=== PATIENT | female | born 2000 | race Caucasian/White ===

== ENCOUNTER 2019-09-12 06:55 | Observation (INO) ==
[2019-09-12] MEDS ORDERED: 0.9 % Sodium Chloride 1,000 ML IVC ONE ×2 (07:14→07:43)
[2019-09-12] MEDS ORDERED: Morphine Sulfate 2 MG/ML SYRINGE IVP ONE (07:19)
[2019-09-12 07:28] LABS: Basophils % 0.4 %; Eosinophils # 0.2 K/mcL (0.0-0.6); Eosinophils % 2.1 %; Hematocrit 38.3 % (35.3-44.9); Hemoglobin 13.2 g/dL (11.5-15.4); Immature Granulocytes % 0.8 % (0-4); Lymphocytes % 19.1 %; Mean Corpuscular HGB Conc 34.5 g/dL (31.6-35.5); Mean Corpuscular Hemoglobin 30.1 pg (28.0-33.3); Mean Corpuscular Volume 87.2 fL (83.0-100.0); Mean Platelet Volume 10.6 fL (9.4-12.4); Monocytes # 0.8 K/mcL (0.0-1.3); Monocytes % 7.2 %; Neutrophils # 7.4 K/mcL (1.6-8.9); Platelet Count 313 K/mcL (140-400); Red Blood Count 4.39 M/mcL (3.82-4.97); Red Cell Distribution Width 13.3 % (11.5-14.5); Segmented Neutrophils % 70.4 %; White Blood Count 10.6 K/mcL (4.3-11.1)
[2019-09-12 07:44] LABS: Prothrombin Time 11.6 Seconds (9.4-12.1)
[2019-09-12] MEDS ORDERED: miSOPROStol 100 MCG TABLET PO STA (07:44)
[2019-09-12 07:47] LABS: Activated Partial Thrombo Time 31.4 Seconds (26.0-36.0)
[2019-09-12] MEDS ORDERED: Ibuprofen 600 MG TABLET PO ONE (08:47)
[2019-09-12 10:57] LABS: Hematocrit 26.2 % (35.3-44.9)
[2019-09-12 10:59] LABS: Hemoglobin 9.2 g/dL (11.5-15.4)
[2019-09-12] MEDS ORDERED: Methylergonovine 0.2 MG/ML AMPUL IM ONE ×2 (11:31→12:11)
[2019-09-12] MEDS ORDERED: Bupivacaine/EPI 1:200k 0.5%PF 10 ML VIAL ONE (11:31)
[2019-09-12] MEDS ORDERED: Ondansetron 4 MG/2 ML VIAL IVP ONE (11:44)
[2019-09-12] MEDS ORDERED: Morphine Sulfate 2 MG/ML SYRINGE IVP PRN (11:44)
[2019-09-12] MEDS ORDERED: cefOXitin 1,000 MG in Water for inj. (sterile) 10 ML IVP ONE (12:00)
[2019-09-12] MEDS ORDERED: Ondansetron 4 MG/2 ML VIAL ONE (12:14)
[2019-09-12] MEDS ORDERED: *HR* FentaNYL (PF) 100 MCG/2 ML VIAL ONE (12:14)
[2019-09-12] MEDS ORDERED: *HR* Propofol 200 MG/20 ML VIAL IVP ONE (12:14)
[2019-09-12] MEDS ORDERED: Dexamethasone 4 MG/ML VIAL ONE (12:14)
[2019-09-12] MEDS ORDERED: Ketorolac 30 MG/ML VIAL ONE (12:14)
[2019-09-12] MEDS ORDERED: Lidocaine -MPF 2% 2 ML VIAL ONE (12:14)
[2019-09-12] MEDS ORDERED: CefOXitin 1,000 MG VIAL ONE (12:26)
[2019-09-12 17:27] VITALS: BP 118/78
== END 2019-09-12 16:13 | disposition home or self-care (01) ==
LOC: 1NENUOBS 06:55 → EMEROOARM 06:55 → 1NENUOBS 11:15
PROVIDERS: ADMIT Obstetrics & Gynecology; ATTEND Obstetrics & Gynecology

== ENCOUNTER → 2021-04-11 14:00 | Observation (INO) ==
[2021-04-11 12:13] LABS: Bilirubin,Urine Negative (Negative); Blood,Urine Negative (Negative); Clarity,Urine Turbid (Clear); Color,Urine Yellow (Yellow); Glucose,Urine (UA) Normal (Normal); Ketones,Urine 10 mg/dL (Negative); Leukocyte Esterase,Urine Small (Negative); Nitrite,Urine Negative (Negative); PH,Urine 6.5 pH Units (5.0-8.0); Protein,Urine 30 mg/dL (Neg-Trace); Specific Gravity,Urine 1.027 (1.010-1.025); Urobilinogen,Urine Normal (Normal)
[2021-04-11 12:19] LABS: Bacteria,Urine Few per hpf (None-Few); Mucus,Urine Many per lpf (None-Few); Squamous Epithelial Cell,Urine Few per hpf (None-Few); WBC,Urine 0-3 per hpf (0-3)
== END | disposition home or self-care (01) ==
LOC: 1NENULAB
PROVIDERS: ADMIT Student in an Organized Health Care Education/Training Program; ATTEND Student in an Organized Health Care Education/Training Program

== ENCOUNTER 2021-05-20 07:49 | Inpatient (IN) ==
[2021-05-20] MEDS ORDERED: Famotidine 20 MG/2 ML VIAL IVP PRN (08:10)
[2021-05-20] MEDS ORDERED: Naloxone 0.4 MG/ML INJ IVP PRN (08:10)
[2021-05-20] MEDS ORDERED: Lidocaine 1% 20 ML MDV ID PRN (08:10)
[2021-05-20] MEDS ORDERED: Metoclopramide 10 MG/2 ML VIAL IVP PRN (08:10)
[2021-05-20] MEDS ORDERED: *HR* Nalbuphine 10 MG/ML AMPUL IV PRN (08:10)
[2021-05-20] MEDS ORDERED: Ondansetron 4 MG/2 ML VIAL IVP PRN (08:10)
[2021-05-20] MEDS ORDERED: Azithromycin 500 MG in 0.9 % Sodium Chloride 250 ML IVPB PRN (08:10)
[2021-05-20 08:45] LABS: Basophils % 0.2 %; Eosinophils # 0.2 K/mcL (0.0-0.6); Hematocrit 25.9 % (35.3-44.9); Hemoglobin 7.6 g/dL (11.5-15.4); Immature Granulocytes % 0.9 % (0-4); Lymphocytes # 1.7 K/mcL (0.6-4.6); Lymphocytes % 16.7 %; Mean Corpuscular HGB Conc 29.3 g/dL (31.6-35.5); Mean Corpuscular Volume 75.1 fL (83.0-100.0); Mean Platelet Volume 11.5 fL (9.4-12.4); Monocytes # 0.5 K/mcL (0.0-1.3); Monocytes % 5.2 %; Neutrophils # 7.5 K/mcL (1.6-8.9); Platelet Count 238 K/mcL (140-400); Red Blood Count 3.45 M/mcL (3.82-4.97); Red Cell Distribution Width 15.8 % (11.5-14.5)
[2021-05-20 08:46] LABS: Amphetamine Screen,Urine Negative ng/mL (Cutoff=1000); Barbiturate Screen,Urine Negative ng/mL (Cutoff=200); Benzodiazepines Screen,Urine Negative ng/mL (Cutoff=200); Cannabinoid Screen,Urine Negative ng/mL (Cutoff = 50); Cocaine Screen,Urine Negative ng/mL (Cutoff= 300); Opiate Screen,Urine Negative ng/mL (Cutoff=300); Phencyclidine Screen,Urine Negative ng/mL (Cutoff=25)
[2021-05-20] MEDS ORDERED: miSOPROStoL 25 MCG TABLET PO ONE (09:57)
[2021-05-20] MEDS: Ringers Solution, Lactated 1,000 ML IVC SCH ×2 (14:14→18:10)
[2021-05-20] MEDS ORDERED: EPHEDrine 50 MG/ML VIAL IVP PRN (14:23)
[2021-05-20] MEDS ORDERED: Epidural Premix (fent/bupiv) 110 ML EP SCH (14:30)
[2021-05-20] MEDS ORDERED: Oxytocin 20 units/ LR 1000 mL 20 UNIT/1,000 ML BAG IVC SCH ×2 (16:15→19:40)
[2021-05-20] MEDS ORDERED: Lanolin 7 G OINT...G. TP PRN (19:40)
[2021-05-20] MEDS ORDERED: Benzocaine/Menthol 56 GM AEROSOL SPRAY TP PRN (19:40)
[2021-05-20] MEDS ORDERED: Measles/Mumps/Rubella Vacc 0.5 ML VIAL SQ PRN (19:40)
[2021-05-20] MEDS ORDERED: Rho Immune Globulin 1,500 UNIT SYRINGE IM PRN (19:40)
[2021-05-20] MEDS ORDERED: Oxytocin 20 units/ LR 1000 mL 20 UNIT/1,000 ML BAG IVC ONE (20:03)
[2021-05-20] MEDS: Acetaminophen 325 MG TABLET PO SCH (20:57)
[2021-05-20] MEDS: Ibuprofen 600 MG TABLET PO SCH (20:57)
[2021-05-21] MEDS: Ibuprofen 600 MG TABLET PO SCH ×3 (03:40→17:00)
[2021-05-21] MEDS: Acetaminophen 325 MG TABLET PO SCH ×3 (03:41→17:00)
[2021-05-21 07:47] VITALS: BP 121/87; PULSE 78; TEMP 97.9; O2SAT 99
[2021-05-21] MEDS ORDERED: Prenatal Vit/FA 1 EACH TABLET PO SCH (09:00)
[2021-05-21] MEDS ORDERED: Ferumoxytol 510 MG in 0.9 % Sodium Chloride 100 ML IVPB ONE (09:00)
== END 2021-05-21 17:08 | disposition home or self-care (01) | DRG 560 ==
LOC: 1NENULAB 07:49 → 1NENUOBS 23:15
PROVIDERS: ADMIT Obstetrics & Gynecology; ATTEND Obstetrics & Gynecology

== ENCOUNTER 2022-06-19 20:10 | Inpatient (IN) ==
[~2022-06-19 20:10] MED LIST: *HR* FentaNYL (PF) 100 MCG/2 ML VIAL IVP PRN; *HR* Nalbuphine 10 MG/ML AMPUL IV PRN; Azithromycin 500 MG in 0.9 % Sodium Chloride 250 ML IVPB PRN; Betamethasone Acet/SodPhos 30 MG/5 ML VIAL IM SCH; Famotidine 20 MG/2 ML VIAL IVP PRN; Lidocaine 1% 20 ML MDV INFILT PRN; Metoclopramide 10 MG/2 ML VIAL IVP PRN; Naloxone 0.4 MG/ML INJ IVP PRN; Ondansetron 4 MG/2 ML VIAL IVP PRN; Penicillin G Potassium 5,000,000 UNIT in 0.9 % Sodium Chloride Mini Bag 100 ML IVPB ONE; Ringers Solution, Lactated 1,000 ML IVC SCH
[2022-06-19 20:27] LABS: Basophils % 0.3 %; Eosinophils # 0.2 K/mcL (0.0-0.6); Eosinophils % 1.5 %; Hematocrit 31.6 % (35.3-44.9); Hemoglobin 10.2 g/dL (11.5-15.4); Immature Granulocytes % 0.7 % (0-4); Lymphocytes % 16.8 %; Mean Corpuscular HGB Conc 32.3 g/dL (31.6-35.5); Mean Corpuscular Hemoglobin 26.3 pg (28.0-33.3); Mean Corpuscular Volume 81.4 fL (83.0-100.0); Mean Platelet Volume 11.5 fL (9.4-12.4); Monocytes # 0.8 K/mcL (0.0-1.3); Monocytes % 6.8 %; Neutrophils # 8.9 K/mcL (1.6-8.9); Platelet Count 266 K/mcL (140-400); Red Blood Count 3.88 M/mcL (3.82-4.97); Segmented Neutrophils % 73.9 %
[2022-06-19 20:29] LABS: Amorphous Sediment,Urine Few per hpf (None-Few); Bacteria,Urine Few per hpf (None-Few); Bilirubin,Urine Negative (Negative); Blood,Urine Negative (Negative); Calcium Oxalate Crystals,Urine Present per hpf; Clarity,Urine Turbid (Clear); Color,Urine Yellow (Yellow); Glucose,Urine (UA) Normal (Normal); Ketones,Urine Negative (Negative); Leukocyte Esterase,Urine Negative (Negative); Mucus,Urine Many per lpf (None-Few); Nitrite,Urine Negative (Negative); Protein,Urine Trace mg/dL (Neg-Trace); Specific Gravity,Urine 1.026 (1.010-1.025); Squamous Epithelial Cell,Urine Few per hpf (None-Few)
[2022-06-19 20:34] LABS: Amphetamine Screen,Urine Negative ng/mL (Cutoff=1000); Barbiturate Screen,Urine Negative ng/mL (Cutoff=200); Benzodiazepines Screen,Urine Negative ng/mL (Cutoff=200); Cannabinoid Screen,Urine Positive ng/mL (Cutoff = 50); Cocaine Screen,Urine Negative ng/mL (Cutoff= 300); Opiate Screen,Urine Negative ng/mL (Cutoff=300); Phencyclidine Screen,Urine Negative ng/mL (Cutoff=25)
[2022-06-19] MEDS ORDERED: Ondansetron 4 MG/2 ML VIAL IVP PRN (21:19)
[2022-06-19] MEDS ORDERED: Naloxone 0.4 MG/ML INJ IVP PRN (21:19)
[2022-06-19] MEDS ORDERED: *HR* FentaNYL (PF) 100 MCG/2 ML VIAL EP ONE (21:19)
[2022-06-19] MEDS ORDERED: Ropivacaine/PF 0.2% 20 ML VIAL EP ONE (21:19)
[2022-06-19] MEDS ORDERED: EPHEDrine 50 MG/ML VIAL IVP PRN (21:19)
[2022-06-19] MEDS ORDERED: Epidural Premix (fent/bupiv) 110 ML EP SCH (21:30)
[2022-06-19] MEDS ORDERED: Oxytocin 30 UNIT/503 ML BAG IVC ONE (23:13)
[2022-06-19] MEDS ORDERED: Oxytocin 30 UNIT/503 ML BAG IVC SCH (23:15)
[2022-06-20] MEDS ORDERED: Penicillin G Potassium 2,500,000 UNIT/105 ML MLS IVPB SCH
[2022-06-20] MEDS ORDERED: Ropivacaine/PF 0.2% 20 ML VIAL ONE (00:48)
[2022-06-20] MEDS ORDERED: Lanolin 7 G OINT...G. TP PRN (06:49)
[2022-06-20] MEDS ORDERED: Ondansetron ODT 4 MG TAB.RAPDIS SL PRN (06:49)
[2022-06-20] MEDS ORDERED: Rho Immune Globulin 1,500 UNIT SYRINGE IM PRN (06:49)
[2022-06-20] MEDS ORDERED: Benzocaine/Menthol 56 GM AEROSOL SPRAY TP PRN (06:49)
[2022-06-20] MEDS ORDERED: Measles/Mumps/Rubella Vacc 0.5 ML VIAL SQ PRN (06:49)
[2022-06-20] MEDS: Ibuprofen 600 MG TABLET PO SCH ×3 (07:21→21:27)
[2022-06-20] MEDS: Acetaminophen 325 MG TABLET PO SCH ×3 (07:21→21:26)
[2022-06-20] MEDS: Prenatal Vit/FA 1 EACH TABLET PO SCH (07:40)
[2022-06-20 08:22] VITALS: O2SAT 99
[2022-06-20 22:19] VITALS: BP 112/72; PULSE 83; TEMP 98.4
[2022-06-21] MEDS: Prenatal Vit/FA 1 EACH TABLET PO SCH (08:17)
[2022-06-21] MEDS: Ibuprofen 600 MG TABLET PO SCH (08:17)
== END 2022-06-21 09:25 | disposition home or self-care (01) | DRG 560 ==
LOC: 1NENULAB → 1NENUOBS 06-20 06:47
PROVIDERS: ADMIT Obstetrics & Gynecology; ATTEND Obstetrics & Gynecology